=== PATIENT | male | born 1980 | race Caucasian/White ===

== ENCOUNTER 2021-10-31 15:39 | Emergency (ER) | payer OTHER ==
[~2021-10-31] VITALS: Ht 177.8 cm; Wt 163.3 kg
[2021-10-31] MEDS ORDERED: FUROSEMIDE 20 MG/2 ML VIAL IVP ONE (16:00)
--- NOTE | 2021-10-31 16:02 | NUR ---
PT DOES NOT REMEMBER NAMES AND DOSAGES OF HIS HOME MEDICATION.
[2021-10-31] MEDS ORDERED: FUROSEMIDE 40 MG/4 ML VIAL ONE (16:13)
[2021-10-31 16:21] LABS: ABG BASE EXCESS 1.3 mmol/L; ABG HCO3 26.8 mmol/L; ABG PH 7.392 (7.350-7.450); ABG SITE RIGHT RADIAL; ABG TOTAL HEMOGLOBIN 15.9 G/dL (13.5-18.0); COHb 2.7 % (0.5-1.5); MetHb 0.1 % (0.0-1.5); O2Hb 92.3 % (94.0-97.0); VENT MODE room air
[2021-10-31 16:32] LABS: HEMATOCRIT 46.4 % (36.7-47.1); MEAN CORPUSCULAR HEMOGLOBIN 30.8 uug (23.8-33.4); MEAN CORPUSCULAR VOLUME 91.1 fL (73.0-96.2); PLATELET COUNT (AUTO) 331 K/uL (152-348)
[2021-10-31 16:41] LABS: CARBON DIOXIDE 30 mmol/L (21-32); CHLORIDE 102 mmol/L (98-107); GLUCOSE 96 mg/dL (74-106); UREA NITROGEN, BLOOD 17 mg/dL (7-18)
[2021-10-31 16:44] LABS: POTASSIUM 5.2 mmol/L (3.5-5.1)
[2021-10-31 16:54] LABS: ALANINE AMINOTRANSFERASE 85 U/L (16-63); ALKALINE PHOSPHATASE 68 U/L (50-136); ASPARTATE AMINOTRANSFERASE 58 U/L (15-37); BILIRUBIN,DIRECT < 0.1 mg/dL (0.0-0.2); BILIRUBIN,TOTAL 0.4 mg/dL (0.2-1.0); TOTAL PROTEIN, SERUM 8.1 g/dL (6.4-8.2)
[2021-10-31] MEDS ORDERED: MAG HYDROX/AL HYDROX/SIMETH 30 ML LIQUID UDC PO ONE (17:45)
[2021-10-31] MEDS ORDERED: MAG HYDROX/AL HYDROX/SIMETH 30 ML LIQUID UDC ONE (17:53)
--- NOTE | 2021-10-31 17:53 | NUR ---
Pt out of ER for CT.
--- NOTE | 2021-10-31 18:05 | NUR ---
Pt back to ER from CT.
--- NOTE | 2021-10-31 18:50 | NUR ---
Called [facility] to page Alec Hayes DNP.
--- NOTE | 2021-10-31 19:05 | NUR ---
Dr. Alberto on panel call with Alec Hayes DNP. Patient accepted for admission to [facility], diagnosis: CHF exacerbation.
--- NOTE | 2021-10-31 19:38 | NUR ---
Patient does not wish to proceed with medical care recommended by Dr. Alberto. Patient given information related to possible complications, up to and including , which could occur as a result of leaving the hospital at this time. Patient verbalizes understanding of risks involved due to leaving against medical advice. Patient has signed AMA form.
[2021-10-31] MEDS ORDERED: HYDR-3980 PO ×2 (19:40→19:42)
[2021-10-31 19:46] VITALS: BP 138/106
== END 2021-10-31 19:46 | disposition left against medical advice (07) ==
LOC: ER 15:39
DX: I11.0 Hypertensive heart disease with heart failure (principal); I50.9 Heart failure, unspecified; E66.01 Morbid (severe) obesity due to excess calories; Z68.43 Body mass index [BMI] 50.0-59.9, adult; Z20.822 Contact with and (suspected) exposure to COVID-19; Z53.29 Procedure and treatment not carried out because of patient's decision for other reasons
CPT/HCPCS: 36415; 36600; 71045; 71250; 74176; 80048; 80076; 83605; 83880; 84484; 85025; 85730; 87040 ×2; 87426; 93005; 96374; 99285; J1940; 70030-TC; A4663